=== PATIENT | male | born 1985 | race Caucasian/White ===

== ENCOUNTER 2016-11-20 13:50 | Emergency (ER) | payer SELFPAY ==
[~2016-11-20] VITALS: Ht 177.8 cm; Wt 68.5 kg
[2016-11-20 14:01] VITALS: BP 139/85; PULSE 88; RESP 19; TEMP 97.9; O2SAT 97
[2016-11-20 14:06] VITALS: BP 139/85; PULSE 88; RESP 19; TEMP 97.9; O2SAT 97
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
[2016-11-20] MEDS ORDERED: TETANUS/DIPHTHERIA TOXOID ADULT 0.5 ML VIAL IM ONE (14:15)
[2016-11-20 14:27] LABS: AUTOMATED NEUTROPHIL # 7.4 TH/MM3 (1.8-7.7); BASOPHIL # 0.1 TH/MM3 (0-0.2); BASOPHIL % 0.7 % (0.0-2.0); EOSINOPHIL # 0.2 TH/MM3 (0-0.4); EOSINOPHIL % 1.5 % (0.0-4.0); HEMATOCRIT 43.9 % (39.0-51.0); HEMO FLAGS DIFF FINAL; LYMPH % 20.3 % (9.0-44.0); LYMPHOCYTE # 2.2 TH/MM3 (1.0-4.8); MEAN CELL VOLUME 93.4 FL (80.0-100.0); MEAN CORPUSCULAR HGB CONC 35.4 % (32.0-36.0); MONO % 10.2 % (0.0-8.0); NEUT % 67.3 % (16.0-70.0); PLATELET COUNT 237 TH/MM3 (150-450); RED CELL DISTRIBUTION WIDTH 13.2 % (11.6-17.2); WHITE BLOOD COUNT 10.9 TH/MM3 (4.0-11.0)
[2016-11-20 14:37] LABS: APTT (PATIENT) 25.9 SEC (24.3-30.1); INTERNATIONAL NORMALIZED RATIO 0.9 RATIO; PROTHROMBIN TIME - PATIENT 10.4 SEC (9.8-11.6)
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
[2016-11-20 15:15] LABS: BICARBONATE 26.9 MEQ/L (21.0-32.0)
[2016-11-20] MEDS ORDERED: MORPHINE SULFATE 4 MG/ML INJ IV PUSH ONE (15:15)
[2016-11-20] MEDS ORDERED: ONDANSETRON HCL 4 MG/2 ML VIAL IV PUSH ONE (15:15)
[2016-11-20 15:16] LABS: POTASSIUM 3.9 MEQ/L (3.5-5.1)
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
--- NOTE | 2016-11-20 16:51 | PD ---
Data Data Last Documented VS Vital Signs Date Time Temp Pulse Resp B/P Pulse Ox O2 Delivery O2 Flow Rate FiO2 11/20/16 19:07 92 16 158/100 98 Room Air 11/20/16 14:06 97.9 Orders Complete Blood Count With Diff (11/20/16 14:04) Basic Metabolic Panel (Bmp) (11/20/16 14:04) Act Partial Throm Time (Ptt) (11/20/16 14:04) Prothrombin Time / Inr (Pt) (11/20/16 14:04) Iv Access Insert/Monitor (11/20/16 14:04) Ct Brain W/O Iv Contrast(Rout) (11/20/16 ) Ct Cerv Spine W/O Contrast (11/20/16 ) Ct Facial Bones W/O Iv Cont (11/20/16 ) Wound Care (11/20/16 14:05) Tetanus/Diphtheria Tox Adult (Tetanus/Di (11/20/16 14:15) Ondansetron Inj (Zofran Inj) (11/20/16 15:15) Morphine Inj (Morphine Inj) (11/20/16 15:15) Radiology Film Requests (11/20/16 ) Hydromorphone Pf Inj (Dilaudid Pf Inj) (11/20/16 19:15) Labs Laboratory Tests Test 11/20/16 14:12 White Blood Count 10.9 TH/MM3 Red Blood Count 4.70 MIL/MM3 Hemoglobin 15.5 GM/DL Hematocrit 43.9 % Mean Corpuscular Volume 93.4 FL Mean Corpuscular Hemoglobin 33.0 PG Mean Corpuscular Hemoglobin 35.4 % Concent Red Cell Distribution Width 13.2 % Platelet Count 237 TH/MM3 Mean Platelet Volume 7.0 FL Neutrophils (%) (Auto) 67.3 % Lymphocytes (%) (Auto) 20.3 % Monocytes (%) (Auto) 10.2 % Eosinophils (%) (Auto) 1.5 % Basophils (%) (Auto) 0.7 % Neutrophils # (Auto) 7.4 TH/MM3 Lymphocytes # (Auto) 2.2 TH/MM3 Monocytes # (Auto) 1.1 TH/MM3 Eosinophils # (Auto) 0.2 TH/MM3 Basophils # (Auto) 0.1 TH/MM3 CBC Comment DIFF FINAL Differential Comment Prothrombin Time 10.4 SEC Prothromb Time International 0.9 RATIO Ratio Activated Partial 25.9 SEC Thromboplast Time Sodium Level 142 MEQ/L Potassium Level 3.9 MEQ/L Chloride Level 107 MEQ/L Carbon Dioxide Level 26.9 MEQ/L Anion Gap 8 MEQ/L Blood Urea Nitrogen 5 MG/DL Creatinine 0.88 MG/DL Estimat Glomerular Filtration 100 ML/MIN Rate Random Glucose 99 MG/DL Calcium Level 8.7 MG/DL [facility] Medical Record Reviewed: Yes Supervised Visit with ALBERTO: Yes Narrative Course I, Dr. Carney, have reviewed the advance practice practitioner's documentation and am in agreement, met with the patient face to face, made the diagnosis, and the medical decision making was done by me. *My assessment and Findings: Please refer to the ALBERTO note. CBC & BMP Diagram 11/20/16 14:12 Last [address] 11/20/16 0000 Signed Impressions: Service Date/Time: Sunday, November 20, 2016 14:22 - CONCLUSION: Bilateral maxillary and orbital fractures as described above results are fracturing of the nasal bone and the inferior aspect of the frontal bone involving the frontal sinus and the right superior-medial orbital rim. Blake Leahy MD Head CT 11/20/16 0000 Signed Impressions: Service Date/Time: Sunday, November 20, 2016 14:22 - CONCLUSION: 1. No intracranial abnormality is seen. 2. Numerous facial fractures. Blake Leahy MD Cervical Spine CT 11/20/16 0000 Signed Impressions: Service Date/Time: Sunday, November 20, 2016 14:22 - CONCLUSION: 1. No acute bony injury is seen. 2. Mild central disc protrusion at the C6-C7 level. 3. Subcutaneous air likely from facial fractures. Blake Leahy MD No ocular entrapment. No hyphema. Case d/w Dr Irvin at [facility] who states case is beyond scope of his management and referral to [facility] is indicated. Case d/w Dr Shirley at [facility], trauma surgeon, who requests case to be discussed with Pt accepted by Dr Rhodes at [facility] in [place]. Pt d/w our Trauma Surgery, Dr Daley, who agrees patient would benefit from inpatient trauma surgery management. Unfortunately no maxillofacial/plastic surgeon is available from our institution. Diagnosis Primary Impression: Extensive facial fractures Qualified Code: S02.92XA - Extensive facial fractures, closed, initial encounter Scripts No Active Prescriptions or Reported Meds Jacob Carney MD Nov 20, 2016 16:51
[2016-11-20 17:25] VITALS: BP 158/107; PULSE 55; RESP 18; O2SAT 98
[2016-11-20 19:07] VITALS: BP 158/100; PULSE 92; RESP 16; O2SAT 98
[2016-11-20] MEDS ORDERED: HYDROmorphone HCL PF 1 MG/ML VIAL IV PUSH ONE (19:15)
== END 2016-11-20 21:26 | disposition short-term general hospital (02) ==
LOC: NEPE 13:50
DX: S02.40DA Maxillary fracture, left side, initial encounter for closed fracture (principal); S02.40CA Maxillary fracture, right side, initial encounter for closed fracture; S02.82XA Fracture of other specified skull and facial bones, left side, initial encounter for closed fracture; S02.81XA Fracture of other specified skull and facial bones, right side, initial encounter for closed fracture; Z23 Encounter for immunization; F17.200 Nicotine dependence, unspecified, uncomplicated; Y04.2XXA Assault by strike against or bumped into by another person, initial encounter
CPT/HCPCS: 70450; 70486; 72125; 80048; 85025; 85610; 85730; 90471; 90714; 96374; 96375; 99285; J1170; J2270; J2405

== ENCOUNTER 2017-07-12 19:45 | Emergency (ER) | payer SELFPAY ==
[2017-07-12 19:47] VITALS: BP 162/89; PULSE 85; RESP 16; TEMP 97.8; O2SAT 97
--- NOTE | 2017-07-12 20:21 | PD ---
HPI Chief Complaint: ENT Complaint Time Seen by Provider: 20:16 Travel History International Travel<30 days: No Contact w/Intl Traveler<30days: No Traveled to known affect area: No History of Present Illness HPI 31-year-old male presents for evaluation of right ear discomfort. Symptoms started 1 week ago. He reports some pressure and decreased hearing in the right ear. He reports that he is a Q-tip today and he had a foul-smelling fluid on his Q-tip. Denies any cough, congestion, recent travel, recent swimming, fevers, chills. No other complaints at this time. PFSH Past Medical History Diminished Hearing: No Social History Alcohol Use: Yes (rum daily) Tobacco Use: Yes (1ppd) Substance Use: No Allergies-Medications (Allergen,Severity, Reaction): Coded Allergies: No Known Allergies (Unverified , 04/25/16) Reported Meds & Prescriptions Reported Meds & Active Scripts Active Ofloxacin Otic Drops 0.3 % Drops 10 Drop RIGHT EAR DAILY Review of Systems General / Constitutional: No: Fever, Chills HENT: Positive: Earache, Other (decreased hearing right ear), No: Sore Throat, Congestion Respiratory: No: Cough, Shortness of Breath Physical Exam Narrative GENERAL: Well-developed well-nourished male in no acute distress SKIN: Warm and dry. HEAD: Atraumatic. Normocephalic. EYES: Pupils equal and round. No scleral icterus. No injection or drainage. ENT: No nasal bleeding or discharge. Mucous membranes pink and moist. Right cerumen impaction is present. Left tympanic membranes appears normal without erythema or fluid level. NECK: Trachea midline. No JVD. CARDIOVASCULAR: Regular rate and rhythm. No murmur appreciated. RESPIRATORY: No accessory muscle use. Clear to auscultation. Breath sounds equal bilaterally. Data Data Last Documented VS Vital Signs Date Time Temp Pulse Resp B/P (MAP) Pulse Ox O2 Delivery O2 Flow Rate FiO2 07/12/17 19:47 97.8 85 16 162/89 (113) 97 Orders Orders Ear Irrigation (07/12/17 20:19) [facility] Medical Decision Making Medical Screen Exam Complete: Yes Emergency Medical Condition: Yes Medical Record Reviewed: Yes Differential Diagnosis Cerumen impaction, otitis externa, otitis media Narrative Course The right ear was thoroughly irrigated and a large amount of cerumen was expressed. The patient reports significant improvement of his symptoms. He will be discharged with a short course of ofloxacin otic solution. Diagnosis Primary Impression: Right ear impacted cerumen Additional Instructions: Medication as prescribed. Avoid Q-tip use. Return for any emergent medical conditions. Med/Other Pt SpecificInfo: Prescription(s) given Scripts Ofloxacin Otic Drops (Ofloxacin Otic Drops) 0.3 % Drops 10 DROP RIGHT EAR DAILY for Infection, #1 BOTTLE 0 Refills Prov: Jairo Viveros MD 07/12/17 Disposition: 01 DISCHARGE HOME Condition: Stable Higinio Riddle Jul 12, 2017 20:21
[2017-07-12] MEDS ORDERED: OFLO0.3D9 RIGHT EAR (20:45)
== END 2017-07-12 21:06 | disposition home or self-care (01) ==
LOC: NEPK 19:45
DX: H61.21 Impacted cerumen, right ear (principal); F17.210 Nicotine dependence, cigarettes, uncomplicated
CPT/HCPCS: 99283